=== PATIENT | female | born 1950 | race Caucasian/White ===

== ENCOUNTER 2021-10-27 07:57 | Outpatient (CLI) | payer MEDICARE, OTHER, SELFPAY | END 2021-10-27 07:58 | disposition home or self-care (01) | LOC: OP CLINIC 07:58 | PROVIDERS: PCP Obstetrics & Gynecology; Visit Provider Surgery | DX: Z12.11 Encounter for screening for malignant neoplasm of colon (principal); K63.5 Polyp of colon; K62.1 Rectal polyp; K57.30 Diverticulosis of large intestine without perforation or abscess without bleeding | CPT/HCPCS: 45385; 88305; 99153; J2250; J3010 ==

== ENCOUNTER 2022-10-14 13:27 | Outpatient (CLI) | payer MEDICARE, OTHER, SELFPAY ==
--- NOTE | 2022-10-14 13:40 | CRLHL7_ITS ---
For Patients: As a result of the Century Cures Act, medical imaging exams and procedure reports are released immediately into your electronic medical record. You may view this report before your referring provider. If you have questions, please contact your health care provider. BILATERAL SCREENING MAMMOGRAM WITH COMPUTER-AIDED DETECTION AND TOMOSYNTHESIS TECHNIQUE: CC and MLO views were obtained. These mammographic images have been obtained using full-field digital technique. These mammographic images were interpreted with the benefit of computer-aided detection. Breast Tomosynthesis was used in this interpretation. COMPARISON FILM: 08/31/21, 05/14/20, 11/02/17. FINDINGS: There are scattered areas of fibroglandular density IMPRESSION: There is no radiographic evidence for malignancy. ASSESSMENT: BI-RADS Category 1: Negative RECOMMENDATION: Routine screening mammogram in 1 year. A lay language report of this examination will be provided to the patient. Adarsh Lee M.D. Diagnostic Radiologist [email or web address] VERÓNICA/Dictated by: Adarsh Lee MD @ 10/15/2022 11:00:00 AM (Electronically Signed)
== END 2022-10-14 13:28 | disposition home or self-care (01) ==
LOC: MAMMO 13:29
PROVIDERS: PCP Obstetrics & Gynecology; Visit Provider Obstetrics & Gynecology
DX: Z12.31 Encounter for screening mammogram for malignant neoplasm of breast (principal)
CPT/HCPCS: 77063; 77067

== ENCOUNTER 2022-11-17 14:55 | Outpatient (CLI) | payer MEDICARE, OTHER, SELFPAY | END 2022-11-17 14:56 | disposition home or self-care (01) | PROVIDERS: Visit Provider Obstetrics & Gynecology | DX: Z01.419 Encounter for gynecological examination (general) (routine) without abnormal findings (principal); E55.9 Vitamin D deficiency, unspecified; E03.9 Hypothyroidism, unspecified; Z13.6 Encounter for screening for cardiovascular disorders; Z13.1 Encounter for screening for diabetes mellitus; Z13.29 Encounter for screening for other suspected endocrine disorder | CPT/HCPCS: 80061; 82306; 82947; 84443 ==

== ENCOUNTER 2023-01-11 10:06 | Outpatient (CLI) | payer MEDICARE, OTHER, SELFPAY | END 2023-01-11 10:07 | disposition home or self-care (01) | LOC: NFLDREF 01-12 15:34 | PROVIDERS: Visit Provider Obstetrics & Gynecology | DX: E03.9 Hypothyroidism, unspecified (principal) | CPT/HCPCS: 84443 ==